=== PATIENT | male | born 1980 | race African-American/Black ===

== ENCOUNTER 2018-02-26 07:51 | Emergency (ER) | payer OTHER ==
[~2018-02-26] VITALS: Ht 172.7 cm; Wt 86.2 kg
[2018-02-26 07:58] VITALS: BP 124/77
== END 2018-02-26 09:26 | disposition home or self-care (01) ==
LOC: ER 07:54
DX: K08.89 Other specified disorders of teeth and supporting structures (principal); M62.838 Other muscle spasm; M25.512 Pain in left shoulder
CPT/HCPCS: 73030; 93005